=== PATIENT | female | born 1975 | race Caucasian/White ===

== ENCOUNTER 2020-07-26 13:21 | Emergency (ER) | payer BC ==
[2020-07-26] MEDS ORDERED: Morphine 2 MG/ML SYRINGE IVPUSH STA (14:00)
[2020-07-26] MEDS ORDERED: Ketorolac 30 MG/ML SDV IVPUSH STA (14:00)
[2020-07-26] MEDS ORDERED: Ondansetron 4 MG/2 ML SDV IVPUSH STA (14:00)
[2020-07-26] MEDS ORDERED: Sodium Chloride 0.9% 10 ML Syringe FLUSH PRN (14:00)
[2020-07-26] MEDS ORDERED: Sodium Chloride 0.9% 1,000 ML IV SCH (14:15)
[2020-07-26] MEDS ORDERED: Morphine 2 MG/ML SYRINGE ONE (14:25)
--- NOTE | 2020-07-26 14:52 | EDM.PDOC ---
ED HPI GENERAL MEDICAL PROBLEM - General Chief Complaint: Gastrointestinal Problem Stated Complaint: vomiting and headache Time Seen by Provider: 07/26/20 13:45 Source of Information: Reports: Patient History Limitations: Reports: No Limitations - History of Present Illness INITIAL COMMENTS - FREE TEXT/NARRATIVE: Patient presented to the ED because of headache over the bi frontal area, throbbing, 7/10 with associated nausea and vomiting and can't keep anything down. There is ne fever, chills or neck stiffness. - Related Data Allergies Allergy/AdvReac Type Severity Reaction Status Date / Time cephalexin [Cephalexin] Allergy Rash Verified 07/26/20 15:17 erythromycin base Allergy Hives Verified 07/26/20 15:17 [Erythromycin Base] lamotrigine [From Lamictal] Allergy Cannot Verified 07/26/20 15:17 Remember latex Allergy Rash Verified 07/26/20 15:17 Sulfa (Sulfonamide Allergy Hives Verified 07/26/20 15:17 Antibiotics) Home Meds: Home Meds Cetirizine [ZyrTEC] 10 mg PO DAILY 05/22/13 [History] Cholecalciferol (Vitamin D3) [Thera-D] 4,000 unit PO DAILY 05/22/13 [History] Omeprazole Magnesium [Prilosec Otc] 40 mg PO DAILY 05/22/13 [History] buPROPion [Wellbutrin] 300 mg PO BID 05/22/13 [History] Dextroamphetamine/Amphetamine [Adderall 20 mg Tablet] 40 mg PO DAILY 01/25/16 [History] QUEtiapine Fumarate [Seroquel] 400 mg PO BEDTIME 01/25/16 [History] Ondansetron [Zofran ODT] 4 mg PO Q4H PRN #7 tab.dis 07/26/20 [Rx] Past Medical History Cardiovascular History: Reports: High Cholesterol Respiratory History: Reports: Asthma Gastrointestinal History: Reports: Chronic Constipation, GERD, Irritable Bowel Syndrome GUIDE TOUR History: Reports: Endometriosis, Fibroids, Neurological History: Reports: Migraines Psychiatric History: Reports: Anxiety, Bipolar, Depression, Psych Hospitalization(s) - Past Surgical History GI Surgical History: Reports: Cholecystectomy, Colonoscopy Social & Family History - Family History Family Medical History: No Pertinent Family History ED ROS GENERAL - Review of Systems Review Of Systems: See Below Constitutional: Reports: No Symptoms HEENT: Reports: No Symptoms Respiratory: Reports: No Symptoms Cardiovascular: Reports: No Symptoms Endocrine: Reports: No Symptoms GI/Abdominal: Reports: Nausea, Vomiting : Reports: No Symptoms Musculoskeletal: Reports: No Symptoms Skin: Reports: No Symptoms Neurological: Reports: Headache Psychiatric: Reports: No Symptoms ED EXAM, GENERAL - Physical Exam Exam: See Below Exam Limited By: No Limitations General Appearance: Alert, No Apparent Distress Eye Exam: Bilateral Eye: PERRL Ears: Normal External Exam, Normal Canal Nose: Normal Inspection, Normal Mucosa, No Blood Throat/Mouth: Normal Inspection, Normal Lips, Normal Teeth Head: Atraumatic, Normocephalic Neck: Normal Inspection, Supple, Non-Tender, Full Range of Motion Respiratory/Chest: No Respiratory Distress, Lungs Clear, Normal Breath Sounds, No Accessory Muscle Use, Chest Non-Tender Cardiovascular: Normal Peripheral Pulses, Regular Rate, Rhythm, No Edema, No Gallop, No JVD, No Murmur, No Rub GI/Abdominal: Normal Bowel Sounds, Soft, Non-Tender, No Organomegaly, No Distention, No Abnormal Bruit, No Mass Back Exam: Normal Inspection, Full Range of Motion Extremities: Normal Inspection, Normal Range of Motion, Non-Tender, No Pedal Edema, Normal Capillary Refill Neurological: Alert, Oriented, CN II-XII Intact, Normal Cognition, Normal Gait, Normal Reflexes, No Motor/Sensory Deficits Psychiatric: Normal Affect Course - Vital Signs Text/Narrative:: Lab result was reviewed and discussed with patient NS 1 L bolus Zofran 4 mg IV x1 Toradol 30 mg IV x1 Morphine 2 mg IV x1 Last Recorded V/S: Last Vital Signs Temp 37.4 C 07/26/20 13:39 Pulse 77 07/26/20 15:20 Resp 16 07/26/20 15:20 BP 112/40 L 07/26/20 15:20 Pulse Ox 99 07/26/20 15:20 - Orders/Labs/Meds Labs: Laboratory Tests 07/26/20 07/26/20 Range/Units 14:20 14:20 WBC 5.8 (3.0-10.3) x10-3/uL RBC 4.09 (3.60-5.20) x10(6)uL Hgb 12.3 (11.4-15.5) g/dL Hct 36.4 (34.2-48.2) % MCV 89.0 (76.7-100.5) fL MCH 29.9 (23.9-33.9) pg MCHC 33.7 (31.9-34.8) g/dL RDW 12.5 (12.3-16.5) % Plt Count 171 (151-488) x10(3)uL MPV 7.8 (7.1-12.4) fL Add Manual Diff Yes Neutrophils % (Manual) 90 H (46-82) % Band Neutrophils % 2 (0-6) % Lymphocytes % (Manual) 5 L (13-37) % Monocytes % (Manual) 3 L (4-12) % Sodium 139 (135-145) mmol/L Potassium 3.5 (3.5-5.3) mmol/L Chloride 104 (100-110) mmol/L Carbon Dioxide 24 (21-32) mmol/L BUN 16 (7-18) mg/dL Creatinine 0.8 (0.55-1.02) mg/dL Est Cr Clr Drug Dosing TNP Estimated GFR (MDRD) > 60 (>60) BUN/Creatinine Ratio 20.0 (9-20) Glucose 108 (80-116) mg/dL Calcium 7.7 L (8.6-10.2) mg/dL Meds: Medications Discontinued Medications Generic Name Dose Route Start Last Admin Trade Name Ashlyn PRN Reason Stop Dose Admin Sodium Chloride 1,000 mls @ 999 mls/hr 07/26/20 14:15 07/26/20 14:38 Normal Saline IV 999 mls/hr ASDIRECTED MANE Administration Ketorolac Tromethamine 30 mg 07/26/20 14:00 07/26/20 14:20 Ketorolac 30 Mg/Ml Sdv IVPUSH 07/26/20 14:01 30 mg NOW STA Administration Morphine Sulfate 2 mg 07/26/20 14:00 07/26/20 14:26 Morphine 2 Mg/Ml Syringe IVPUSH 07/26/20 14:01 2 mg NOW STA Administration Morphine Sulfate Confirm 07/26/20 14:25 07/26/20 14:29 Morphine 2 Mg/Ml Syringe Administered 07/26/20 14:26 Not Given Dose 2 mg .ROUTE .STK-MED ONE Ondansetron HCl 4 mg 07/26/20 14:00 07/26/20 14:13 Ondansetron 4 Mg/2 Ml Sdv IVPUSH 07/26/20 14:01 4 mg NOW STA Administration Sodium Chloride 10 ml 07/26/20 14:00 07/26/20 14:10 Sodium Chloride 0.9% 10 Ml Syringe FLUSH 10 ml ASDIRECTED PRN Administration Keep Vein Open Departure - Departure Time of Disposition: 15:30 Disposition: Home, Self-Care 01 Condition: Good Clinical Impression: Migraine - Discharge Information Prescriptions: Ondansetron [Zofran ODT] 4 mg PO Q4H PRN #7 tab.dis PRN Reason: Nausea Instructions: Migraine Headache, [id number] Referrals: Hayley Calloway [employer] [Primary Care Provider] - Forms: ED Department Discharge, ED Department Discharge Additional Instructions: Please read discharge instructions on migraine Zofran odt 4 mg every 4 hour as needed for nausea Continue your medicine for migraine Follow up as needed
[2020-07-26 15:24] VITALS: BP 112/40; PULSE 77
== END 2020-07-26 16:05 | disposition home or self-care (01) ==
LOC: FB.ED 13:21
DX: G43.909 Migraine, unspecified, not intractable, without status migrainosus (principal); J45.909 Unspecified asthma, uncomplicated; K21.9 Gastro-esophageal reflux disease without esophagitis; Z79.899 Other long term (current) drug therapy; Z88.1 Allergy status to other antibiotic agents; Z91.040 Latex allergy status; Z88.2 Allergy status to sulfonamides; Z88.8 Allergy status to other drugs, medicaments and biological substances
CPT/HCPCS: 36415; 80048; 85025; 96374; 96375; 99283; J1885; J2270; J2405; J7030

== ENCOUNTER 2024-03-07 09:15 | Emergency (ER) | payer BC ==
[2024-03-07] MEDS ORDERED: Sodium Chloride 0.9% 10 ML Syringe FLUSH PRN (09:43)
[2024-03-07 09:56] VITALS: BP 117/63; PULSE 63
[2024-03-07 10:11] LABS: BASOPHILS PERCENT AUTO 0.9 % (0.2-1.5); HEMATOCRIT 36.3 % (34.2-48.2); HEMOGLOBIN 12.3 g/dL (11.4-15.5); LYMPHOCYTES ABSOLUTE AUTO 1.3 x10-3/uL (1.0-4.4); LYMPHOCYTES PERCENT AUTO 31.2 % (18.4-52.1); MEAN CORPUSCULAR HGB CONC 33.8 g/dL (31.9-34.8); MEAN CORPUSCULAR VOLUME 91.7 fL (76.7-100.5); MEAN PLATELET VOLUME 8.3 fL (7.1-12.4); MONOCYTES ABSOLUTE AUTO 0.3 x10-3/uL (0.3-1.0); NEUTROPHILS ABSOLUTE AUTO 2.6 x10-3/uL (1.5-6.3); NEUTROPHILS PERCENT AUTO 60.9 % (30.8-76.2); PLATELET COUNT,PLT 192 x10(3)uL (151-488); RED BLOOD CELL COUNT 3.96 x10(6)uL (3.60-5.20); RED CELL DISTRIBUTION WIDTH 12.5 % (12.3-16.5); WHITE BLOOD CELL COUNT,WBC 4.3 x10-3/uL (3.0-10.3)
[2024-03-07 10:14] LABS: BLOOD UREA NITROGEN,BUN 7 mg/dL (7-18); BUN/CREATININE RATIO 8.8 (9-20); CALCIUM 8.9 mg/dL (8.6-10.2); CARBON DIOXIDE,CO2 29 mmol/L (21-32); CHLORIDE,CL 106 mmol/L (100-110); CREATININE 0.8 mg/dL (0.55-1.02); ESTIMATED GFR 91 mL/min (>60); GLUCOSE RANDOM 97 mg/dL (80-116); POTASSIUM,K 4.2 mmol/L (3.5-5.3); SODIUM,NA 140 mmol/L (135-145)
[2024-03-07 10:20] LABS: A/G RATIO 1.4; ALANINE AMINOTRANSFERASE,ALT 19 U/L (12-36); ALBUMIN 3.6 g/dL (3.5-5.2); ALKALINE PHOSPHATASE 62 IU/L (56-112); ASPARTATE AMNIOTRANSFERASE,AST 9 IU/L (5-25); BILIRUBIN TOTAL 0.3 mg/dL (0.1-1.3); PROTEIN TOTAL,TP 6.1 g/dL (6.0-8.0)
[2024-03-07] MEDS: Lactated Ringers 1,000 ML IV SCH (10:33)
[2024-03-07] MEDS: Ondansetron 4 MG/2 ML SDV IVPUSH STA (10:38)
[2024-03-07] MEDS: Ketorolac 30 MG/ML SDV IVPUSH ONE (10:38)
[2024-03-07] MEDS: Morphine 4 MG/ML VIAL IVPUSH ONE (12:08)
== END 2024-03-07 13:27 | disposition home or self-care (01) ==
LOC: FB.ED 09:15
DX: G43.909 Migraine, unspecified, not intractable, without status migrainosus (principal); F17.210 Nicotine dependence, cigarettes, uncomplicated; K21.9 Gastro-esophageal reflux disease without esophagitis; Z79.899 Other long term (current) drug therapy; Z88.1 Allergy status to other antibiotic agents; Z88.2 Allergy status to sulfonamides; Z91.040 Latex allergy status; Z88.8 Allergy status to other drugs, medicaments and biological substances
CPT/HCPCS: 36415; 70450; 80053; 84443; 85025; 93005; 93010; 96361; 96374; 96375; 99284; J2270; J2405; J7120; J1885